=== PATIENT | female | born 1945 | race Caucasian/White ===

== ENCOUNTER 2020-03-22 06:53 | Emergency (ER) | payer MEDICARE ==
[~2020-03-22 06:53] MED LIST: CITA40TA14 PO; ZIPR60CA2 PO
[2020-03-22] MEDS ORDERED: MEPERIDINE-PF 50 MG/ML SYG ONE (10:16)
[2020-03-22] MEDS ORDERED: MIDAZOLAM HCL 1 MG/ML 2ML VIAL ONE ×2 (10:17→10:49)
== END 2020-03-22 16:14 | disposition home or self-care (01) ==
LOC: EDH 06:53
DX: Z43.1 Encounter for attention to gastrostomy (principal); I10 Essential (primary) hypertension; Z20.828 Contact with and (suspected) exposure to other viral communicable diseases
CPT/HCPCS: 36415; 43246; 86677; 99283; A4215 ×2; A4222; A4223; A4606; A4657; J2175; J2250 ×2; J7030; U0003; 99152; 99153